=== PATIENT | female | born 1955 | race Caucasian/White ===

== ENCOUNTER → 2019-02-26 | Outpatient (CLI) | payer BC ==
--- NOTE | 2019-02-26 13:29 | PCVCIMAG ---
APPROVED REPORT Study performed: 02/26/2019 10:40:28 Exam: Stress Echocardiogram Indication: Palpitations, bradycarrdia, near syncope Patient Location: Echo lab Stress Nurse: Julissa Valerio RN Status: routine Ht: 5 ft 3 in HR: 61 bpm BP: 110/70 mmHg Rhythm: NSR Medical History Exercise History: Physically active Procedure The patient underwent an Exercise Stress Test using the Julio César Protocol. Blood pressure, heart rate, and EKG were monitored. An Echocardiogram was performed by hearing aid repair technician in four stages in quad fashion. At peak stress, four selected images were obtained and placed side by side with resting images for comparison. Stress Test Details Stress Test: Exercise stress testing was performed using a Julio César protocol. HR Resting HR: 61 bpmMax Heart Rate (APMHR): 157 bpm Max HR Achieved: 173 bpmTarget HR (85% APMHR): 133 bpm % of APMHR: 110 HR response to stress: Normal HR response to stress BP Resting BP: 110/70 mmHg Max BP: 168/78 mmHg Recovery BP: 110/70 mmHg BP response to stress: Normal blood pressure response to stress. ECG Resting ECG: Sinus Rhythm Stress ECG: Sinus Rhythm ST Change: Horizontal ST depression Maximum ST Deviation: 1.5 mm Arrhythmia: None Recovery ECG: Sinus Rhythm Recovery ST Change: Upsloping ST depression Recovery ST Deviation: 0.5 mm Clinical Reason for Termination: Maximal effort Exercise duration: 11 min 12 sec Highest Stage Achieved: Stage 4: 4.2 mph at 16% grade. Exercise capacity: 13.40 METs Overall Exercise Capacity for Age: Good Angina Score: None Stress ECG Conclusion Clinical: Non-ischemic Abnormal exercise stress ECG consistent with stress-induced myocardial ischemia. Rapid resolution of the upsloping ST segment changes, likely false positive response Alas Treadmill Score is 3.5 which is Moderate risk. Pre-Stress Echo The resting Echocardiogram showed normal left ventricular contractility with an estimated Ejection Fraction of about 55-60%. Normal wall motion in all segments on baseline images. Post-Stress Echo The stress Echocardiogram showed normal left ventricular contractility with an estimated Ejection Fraction of about 65-70%. Normal augmentation of wall motion in all segments on post stress images. Clinical No clinical or ECG evidence for ischemia. Conclusion Clinical Response: Non-ischemic Exercise Capacity: Superior Stress ECG Response: Ischemic Stress Echo Images: Non-ischemic The left ventricle is normal in size and wall thickness in both the rest and stress images. Normal stress echocardiogram with maximal exercise stress. Abnormal electrocardiographic response, likely false positive. Other Information Study Quality: Good <Conclusion> The left ventricle is normal in size and wall thickness in both the rest and stress images. Normal stress echocardiogram with maximal exercise stress. Abnormal electrocardiographic response, likely false positive.
== END | disposition home or self-care (01) ==
LOC: PCVCIMAG 10:58
PROVIDERS: ATTEND Internal Medicine
DX: R55 Syncope and collapse (principal); R00.1 Bradycardia, unspecified; E78.5 Hyperlipidemia, unspecified; Z88.0 Allergy status to penicillin
CPT/HCPCS: 93325; 93351